=== PATIENT | female | born 1985 | race Caucasian/White ===

== ENCOUNTER 2022-01-21 08:55 | Emergency (ER) | payer MEDICAID ==
[~2022-01-21] VITALS: Ht 167.6 cm; Wt 86.0 kg
[2022-01-21] MEDS ORDERED: ONDANSETRON HCL 4MG/2ML INJ IV NR (09:31)
[2022-01-21] MEDS ORDERED: KETOROLAC 30MG/ML VIAL IV NR (09:31)
[2022-01-21 09:44] LABS: BASOPHILS % 0.7 % (0.0-2.0); EOSINOPHILS % 0.5 % (0.0-5.0); HEMATOCRIT. 39.3 % (36.0-48.0); HEMOGLOBIN. 11.3 g/dL (12.0-16.0); LYMPHOCYTES % 28.5 % (20.0-50.0); MEAN CORPUSCULAR VOLUME 69.9 fL (81.0-99.0); MONOCYTES % 13.1 % (2.0-8.0); NEUTROPHILS % 57.2 % (40.0-76.0); PLATELET 268 x1000/uL (130-400); RED BLOOD CELL COUNT 5.62 mill/uL (4.2-5.4); RED CELL DISTRIBUTION WIDTH 26.4 % (11.6-14.6)
[2022-01-21 09:46] LABS: CHLORIDE 102 mEq/L (98-107)
[2022-01-21 09:49] LABS: HCG SCREEN NEGATIVE
[2022-01-21 09:59] LABS: INR 1.4
[2022-01-21] MEDS ORDERED: SODIUM CHLORIDE 0.9% 500 ML IV ONE (10:00)
[2022-01-21 10:05] LABS: CLARITY URINE CLEAR (CLEAR); COLOR URINE YELLOW (YELLOW); KETONES URINE NEGATIVE (NEGATIVE); LEUKOCYTE ESTERASE URINE NEGATIVE (NEGATIVE); NITRITE URINE NEGATIVE (NEGATIVE); OCCULT BLOOD URINE NEGATIVE (NEGATIVE); PROTEIN URINE TRACE (NEGATIVE); SPECIFIC GRAVITY URINE 1.015 (1.005-1.030)
[2022-01-21 10:20] LABS: PLATELET ESTIMATE NORMAL
[2022-01-21] MEDS ORDERED: CEPH500C2 PO (11:34)
[2022-01-21] MEDS ORDERED: SULF1TAB48 PO (11:34)
[2022-01-21 12:05] VITALS: BP 100/62
== END 2022-01-21 12:22 | disposition home or self-care (01) ==
LOC: ER 08:55
DX: D25.9 Leiomyoma of uterus, unspecified (principal); L03.113 Cellulitis of right upper limb; I49.9 Cardiac arrhythmia, unspecified
CPT/HCPCS: 36415; 71045; 76830; 76856; 80053; 81003; 83690; 83880; 84703; 85025; 85610; 93005; 96361; 96374; 96375; 99285; J1885; J2405